=== PATIENT | male | born 1995 | race Caucasian/White ===

== ENCOUNTER 2016-11-13 05:40 | Emergency (ER) | payer OTHER ==
[2016-11-13 08:08] VITALS: BP 125/80
--- NOTE | 2016-11-13 08:31 | ED ---
Chelsie Martinez SooYoung, scribed for Walter Blount MD on 11/13/16 at 0752 . Shortness of Breath - HPI Summary HPI Summary: A 20 y/o M presents to ED with c/o blood in sputum onset this AM, and ongoing cough for past week. Associated sx: mild SOB, MARTINEZ since resolved. No sputum or productive cough other than this AM. Pt was sent home from work last night due to his coughing. He is a smoker. - History of Current Complaint Chief Complaint: EDShortnessOfBreath Time Seen by Provider: 11/13/16 07:45 Hx Obtained From: Patient - Allergy/Home Medications Allergies/Adverse Reactions: Allergies Allergy/AdvReac Type Severity Reaction Status Date / Time No Known Allergies Allergy Verified 11/13/16 05:59 PMH/Surg Hx/FS Hx/Imm Hx Previously Healthy: Yes Endocrine/Hematology History: Denies: Hx Anticoagulant Therapy, Hx Diabetes, Hx Thyroid Disease Cardiovascular History: Denies: Hx Hypertension Respiratory History: Denies: Hx Asthma, Hx Chronic Obstructive Pulmonary Disease (COPD) GI History: Denies: Hx Ulcer - Surgical History Surgery Procedure, Year, and Place: oral surgery - - Immunization History Date of Tetanus Vaccine: utd Date of Influenza Vaccine: unk Infectious Disease History: No Infectious Disease History: Denies: Hx Clostridium Difficile, Hx Hepatitis, Hx Human Immunodeficiency Virus (HIV), Hx of Known/Suspected MRSA, Traveled Outside the in Last 30 Days - Family History Known Family History: Positive: Other - pos: fhx of [place] - Social History Occupation: Employed Full-time Lives: Alone Alcohol Use: Weekly Alcohol Amount: to excess about once a week Hx Substance Use: Yes Substance Use Type: Reports: Marijuana Substance Use Comment - Amount & Last Used: 1-2 gms twice a week Hx Tobacco Use: Yes Smoking Status (MU): Light Every Day Tobacco Smoker Review of Systems Positive: Shortness Of Breath - mild, Cough - ongoing all week, with blood this AM Positive: Headache - resolved All Other Systems Reviewed And Are Negative: Yes Physical Exam Triage Information Reviewed: Yes Vital Signs On Initial Exam: Initial Vitals BP 152/79 11/13/16 05:51 Vital Signs Reviewed: Yes Appearance: Positive: Well-Appearing, No Pain Distress Skin: Positive: Warm, Skin Color Reflects Adequate Perfusion, Dry Head/Face: Positive: Normal Head/Face Inspection Eyes: Positive: Normal ENT: Positive: Normal ENT inspection Neck: Positive: Supple, Nontender Respiratory/Lung Sounds: Positive: Clear to Auscultation, Breath Sounds Present Cardiovascular: Positive: RRR Abdomen Description: Positive: Nontender, Soft Bowel Sounds: Positive: Present Musculoskeletal: Positive: Normal Neurological: Positive: Normal Psychiatric: Positive: Normal, Affect/Mood Appropriate - [place] Coma Scale Coma Scale Total: 15 Diagnostics - Vital Signs Vital Signs Temp Pulse Resp BP Pulse Ox 11/13/16 07:30 53 120/60 97 11/13/16 07:00 52 127/62 98 11/13/16 06:30 55 126/56 97 11/13/16 06:00 61 148/90 98 11/13/16 05:54 58 100 11/13/16 05:52 99.5 F 59 16 148/90 99 11/13/16 05:51 152/79 - Laboratory Lab Statement: Any lab studies that have been ordered have been reviewed, and results considered in the medical decision making process. - Radiology CXR Xray Interpretation: No Acute Changes Radiology Interpretation Completed By: ED Physician Course/Dx - Course Course Of Treatment: Mr. Ambrocio has had a cough for a week or so and was sent home from work last night for coughing. This AM he had blood in the sputum that he coughed up. His vitals were OK as was his exam and CXR. I recommended that he stop smoking and treated him with biaxin and cough med for bronchitis. - Diagnoses Provider Diagnoses: Bronchitis, Hemoptysis Discharge - Discharge Plan Condition: Stable Disposition: HOME Prescriptions: Clarithromycin TAB* [Biaxin TAB*] 500 mg PO BID #20 tab guaiFENesin/CODIEN 100MG-10MG* [Robitussin AC 100Mg-10Mg*] 5 ml PO Q4H PRN #250 udc MDD 30 PRN Reason: Cough Patient Education Materials: Acute Bronchitis (ED), Clarithromycin (By mouth), Guaifenesin/Hydrocodone (By mouth) Referrals: No Primary Care Phys,NOPCP [Primary Care Provider] - [facility] [Outside] The documentation as recorded by the Chelsie shukla SooYoung accurately reflects the service I personally performed and the decisions made by me, Walter Blount MD.
--- NOTE | 2016-11-13 09:46 | RAD ---
INDICATION: 1 week cough with hemoptysis this morning. COMPARISON: None. TECHNIQUE: Dual energy PA and routine lateral views of the chest were obtained. REPORT: The lung volumes appear elevated with partial flattening of the hemidiaphragms suggesting potential obstructive lung disease. No alveolar consolidation, focal pulmonary lesion, pleural effusion, pneumothorax. The heart, pulmonary vasculature, and mediastinal contours are unremarkable. IMPRESSION: 1. No evidence for pneumonia or presence of a focal pulmonary lesion. 2. Potential obstructive lung disease.
== END 2016-11-13 08:06 | disposition home or self-care (01) ==
LOC: ED 05:40
DX: J40 Bronchitis, not specified as acute or chronic (principal); R04.2 Hemoptysis; R05 Cough; R51 Headache; R06.02 Shortness of breath; F17.210 Nicotine dependence, cigarettes, uncomplicated
CPT/HCPCS: 71020; 99281